=== PATIENT | male | born 1990 | race Caucasian/White ===

== ENCOUNTER 2020-04-06 02:05 | Emergency (ER) | payer OTHER ==
[~2020-04-06] VITALS: Ht 180.3 cm; Wt 79.4 kg
[2020-04-06 02:08] VITALS: Ht 180.3 cm; Wt 79.4 kg
[2020-04-06 02:34] VITALS: BP 122/74
== END 2020-04-06 02:34 | disposition other institution (70) ==
LOC: ED 02:05
DX: Z02.89 Encounter for other administrative examinations (principal)